=== PATIENT | female | born 1955 | race Caucasian/White ===

== ENCOUNTER 2020-10-06 10:27 | Outpatient (CLI) | payer MEDICARE, OTHER | END 2020-10-06 10:28 | disposition home or self-care (01) | LOC: CSHMAMMO 10:27 | PROVIDERS: ATTEND Student in an Organized Health Care Education/Training Program | DX: Z12.31 Encounter for screening mammogram for malignant neoplasm of breast (principal) | CPT/HCPCS: 77063; 77067 ==

== ENCOUNTER 2024-01-29 10:21 | Outpatient (CLI) | payer MEDICARE, OTHER | END 2024-01-29 10:22 | disposition home or self-care (01) | LOC: CSHMAMMO 10:21 | PROVIDERS: ATTEND Nurse Practitioner Family | DX: Z12.31 Encounter for screening mammogram for malignant neoplasm of breast (principal); Z13.820 Encounter for screening for osteoporosis; Z78.0 Asymptomatic menopausal state; M85.89 Other specified disorders of bone density and structure, multiple sites; Z80.3 Family history of malignant neoplasm of breast | CPT/HCPCS: 77063; 77067; 77080 ==

== ENCOUNTER 2025-05-16 13:27 | Outpatient (CLI) | payer MEDICARE | END 2025-05-16 13:28 | disposition home or self-care (01) | LOC: CSHULT 13:27 | PROVIDERS: ATTEND Student in an Organized Health Care Education/Training Program | DX: R53.83 Other fatigue (principal); I36.9 Nonrheumatic tricuspid valve disorder, unspecified | CPT/HCPCS: 93306 ==